=== PATIENT | male | born 1950 | race Caucasian/White ===

== ENCOUNTER 2017-10-24 10:49 | Day surgery (SDC) | END 2017-10-24 14:40 | disposition home or self-care (01) ==

== ENCOUNTER 2018-01-10 14:33 | Emergency (ER) | END 2018-01-10 20:12 | disposition home or self-care (01) ==

== ENCOUNTER 2018-02-21 12:00 | Day surgery (SDC) | END 2018-02-21 16:00 | disposition home or self-care (01) ==